=== PATIENT | female | born 1980 | race Caucasian/White ===

== ENCOUNTER 2022-11-08 13:02 | Emergency (ER) | payer BC ==
[~2022-11-08] VITALS: Ht 160 cm; Wt 91.2 kg
[2022-11-08 13:35] VITALS: BP 143/91
[2022-11-08 14:13] LABS: BASOPHILS # (AUTO) 0.1 K/uL (0.00-0.22); EOSINOPHILS # (AUTO) 0.4 K/uL (0-0.4); EOSINOPHILS % (AUTO) 3.7 % (0.0-4.0); HEMATOCRIT 42.6 % (36-48); HEMOGLOBIN 14.5 g/dL (12.0-16.0); LYMPHOCYTES # (AUTO) 2.1 K/uL (2.5-16.5); LYMPHOCYTES % (AUTO) 21.4 % (20.5-51.1); MEAN CORPUSCULAR HEMOGLOBIN 32 pg (27-31); MEAN CORPUSCULAR HGB CONC 34 g/dL (33-37); MEAN CORPUSCULAR VOLUME 93.2 fL (80-94); MONOCYTES # (AUTO) 0.7 K/uL (0.8-1.0); MONOCYTES % (AUTO) 7.7 % (1.7-9.3); NEUTROPHILS # (AUTO) 6.4 K/uL (1.8-7.7); NEUTROPHILS % (AUTO) 66.2 % (42.2-75.2); PLATELET COUNT (AUTO) 322 K/uL (140-450); RED BLOOD CELL COUNT(AUTO) 4.57 MIL/uL (4.20-5.40); RED CELL DISTRIBUTION WIDTH 13.7 % (11.6-13.7); WHITE BLOOD COUNT (AUTO) 9.6 K/uL (4.8-10.8)
[2022-11-08 14:23] LABS: ANION GAP 12.7 (8-16); CARBON DIOXIDE 26.1 mmol/L (21-32); CREATININE 0.8 mg/dL (0.6-1.3); POTASSIUM 3.8 mmol/L (3.5-5.1)
--- NOTE | 2022-11-08 14:46 | NUR ---
ASSESMENT PER FLOWSHEET. COMFORT MEASURES AND SUPPORTIVE CARE INITIATED. PREP FOR ERMD EVAL. URINE OBTAINED AND SENT FROM TRIAGE. AWAIT FURTHER ORDERS. VSS. NAD,.
[2022-11-08 15:01] LABS: APPEARANCE,URINE CLEAR (CLEAR); BILIRUBIN,URINE NEGATIVE (NEGATIVE); BLOOD, URINE 3+ (NEGATIVE); COLOR,URINE YELLOW (YELLOW); LEUKOCYTE ESTERASE ,URINE NEGATIVE (NEGATIVE); NITRITE, URINE NEGATIVE (NEGATIVE); PH,URINE 6.5 (5.0-9.0); UGLUCOSE NEGATIVE (NEGATIVE)
[2022-11-08 15:25] LABS: RBC,URINE TOO NUMEROUS TO COUN /HPF (0-5)
[2022-11-08] MEDS ORDERED: ACETAMINOPHEN EXTRA STRENGTH 500 MG TAB PO ONE (15:25)
--- NOTE | 2022-11-08 16:14 | NUR ---
ULTRASOUND COMPLETE. PT RESTING COMFORTABLY AT THIS TIME. NAD. VSS. NO FURTHER ORDERS.
[2022-11-08] MEDS ORDERED: MORPHINE SULFATE 4 MG/ML SYR IM ONE (16:25)
[2022-11-08] MEDS ORDERED: IBUPROFEN 600 MG TAB PO ONE (16:25)
[2022-11-08] MEDS ORDERED: IBUP-2213 PO (17:18)
[2022-11-08] MEDS ORDERED: ACET-10509 PO (17:18)
[2022-11-08] MEDS ORDERED: ACETAMINOPHEN EXTRA STRENGTH 500 MG TAB ONE (17:35)
--- NOTE | 2022-11-08 17:46 | NUR ---
MEDICATED PER ORDER. COMFORT MEASURES AND SUPPORTIVE CARE CONTINUED. PT STATES TRANSPORT HOME EN ROUTE. ETA [id number]
--- NOTE | 2022-11-08 18:44 | NUR ---
PT VERB UNDERSTANDING OF VERBAL ACI GIVEN BY MICHELLE. COPIES OF DIAGNOSTIC STUDIES PROVIDED. FAMILY FRIEND ARRIVES FOR TRANSPORT HOME. PT ADVICED OF UNDER INFLUENCE STATUS AND NOT TO DRIVE. PT AGREES W/ D/C PLAN.
[2022-11-08 18:45] VITALS: BP 110/77
== END 2022-11-08 18:44 | disposition home or self-care (01) ==
LOC: MED 13:02
DX: N93.9 Abnormal uterine and vaginal bleeding, unspecified (principal); N83.202 Unspecified ovarian cyst, left side; Z90.49 Acquired absence of other specified parts of digestive tract; Z98.890 Other specified postprocedural states; Z85.3 Personal history of malignant neoplasm of breast; Z79.899 Other long term (current) drug therapy; Z79.1 Long term (current) use of non-steroidal anti-inflammatories (NSAID)
CPT/HCPCS: 36415; 74176; 76830; 80048; 81001; 81025; 85025; 96372; 99285; J2270; Q0092